=== PATIENT | female | born 1945 | race Caucasian/White ===

== ENCOUNTER 2016-08-29 17:59 | Emergency (ER) | payer OTHER ==
--- NOTE | ~2016-08-29 | CR281 ---
[facility] A Service of [facility] & [facility] RADIOLOGY TEXT RESULTS PATIENT: CANDY MARS LOCATION: [facility] : 43 UNIT #: [id number] AGE: [address]: Rosie Vital APRN SEX: F ORDER DR: [id number] [facility] [address] [place], [place] [address] [id number] MR#: [id number] Acc #: [id number] NAME: CANDY MARS. : 1945 SEX: F STUDY DATE/TIME: 08/29/2016 18:24 UNIT: [facility] ROOM: STUDY DESCRIPTION: CR Wrist Min 3 View Lt Attending Physician: Rosie Vital A.P.R.N. Ordering Physician: Rosie Vital A.P.R.N. Primary Care Physician: Dian Ramos M.D. MEDICAL IMAGING REPORT This report is preliminary unless electronic signature is present EXAM Left wrist 3 views HISTORY Fell in parking lot 2 hours ago left wrist pain. FINDINGS 3 views of the left wrist demonstrates a nondisplaced nonimpacted transverse fracture of the distal radius no intraarticular extension. 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 Carpal alignment appears normal. Dictated by... Ezekiel Burnett M.D. THIS IS AN ELECTRONICALLY VERIFIED REPORT Ezekiel Burnett M.D. at 08/30/2016 1:03 PM LUIS/lexis TD: 08/30/2016 02:21 JOB #: [id number] MEDICAL IMAGING REPORT Page 1 of 1 COPY
[~2016-08-29 17:59] MED LIST: ADVAIR 2501 DISK W/1 INH; AFRIN NASAL SPR15 ML; ALBUTEROL17 GM INH; ASPIRIN ENTERI325 M1 PO; ATIVAN0.5 MG PO; BACTRIM DS TABL1 TA1 PO; BACTROBAN15 GM TOP; CENTRUM SILVER PO; CLEOCIN HCL300 M1 PO; COQ-10200 MG PO; DITROPAN PO; DOXYCYCLINE HY100 M4 PO; FISH OIL 1,0001 EAC2 PO; FORADIL12 MCG; GLUCOPHAGE XR500 MG PO; GLUCOPHAGE500 MG PO; IBUPROFEN PO; IBUPROFEN800 MG PO; LASIX PO; LIPITOR PO; LISINOPRIL PO; LITHIUM PO; LORTAB 10/500 T1 TAB PO; LOVAZA1 G PO; MAALOX ADVANCE1 EACH PO; MAGNESIUM200 MG PO; MEDROL PO; MILK THISTLE PO; MIRALAX255 GM PO; MORPHINE SULFAT30 M3 PO; MUCINEX DM1 TAB.SR . PO; OS-CAL 500+D CA1 TAB PO; OXYCONTIN PO; OXYCONTIN40 MG PO; PREDNISONE10 MG/DOSE PO; PULMICORT200 MCG/AE INH; SEROQUEL PO; SPIRIVA18 MCG INH; TOPAMAX PO; TRICOR PO; VICODIN PO; VISTARIL PO; VITAMIN B-12 SUBQ; VITAMIN D-32000 UNIT PO; WELLBUTRIN100 MG PO; XANAX0.5 MG PO; ZETIA PO; [UNRECOGNIZED DRUG - OTHER] PO
== END 2016-08-29 19:25 | disposition home or self-care (01) ==
LOC: CFTX 17:59 → CED 17:59 → CFTX 19:11
DX: S52.502A Unspecified fracture of the lower end of left radius, initial encounter for closed fracture (principal); I10 Essential (primary) hypertension; J44.9 Chronic obstructive pulmonary disease, unspecified; K21.9 Gastro-esophageal reflux disease without esophagitis; F41.9 Anxiety disorder, unspecified; F32.9 Major depressive disorder, single episode, unspecified; Z88.8 Allergy status to other drugs, medicaments and biological substances; Z88.0 Allergy status to penicillin; Z88.5 Allergy status to narcotic agent; Z91.041 Radiographic dye allergy status; Z79.899 Other long term (current) drug therapy; W01.0XXA Fall on same level from slipping, tripping and stumbling without subsequent striking against object, initial encounter; Y92.009 Unspecified place in unspecified non-institutional (private) residence as the place of occurrence of the external cause
CPT/HCPCS: 29125; 73110; 99283